=== PATIENT | male | born 1945 | race Caucasian/White ===

== ENCOUNTER 2020-07-05 11:30 | Outpatient (RCR) | payer MEDICARE, OTHER, SELFPAY | END 2020-07-06 23:55 | disposition home or self-care (01) | LOC: HO.PAOS 11:30 | PROVIDERS: Visit Provider Psychologist | DX: F40.10 Social phobia, unspecified (principal); Z86.59 Personal history of other mental and behavioral disorders | CPT/HCPCS: 90834 ==

== ENCOUNTER 2020-08-04 14:00 | Outpatient (RCR) | payer MEDICARE, OTHER, SELFPAY ==
--- NOTE | 2020-05-29 10:13 | HO.OPPROGNO ---
Subjective Subjective Date of Service: 05/29/20 Reason For Visit: depression Interim History: Keegan reports he has chosen to quarantine given the increase of COVID cases. He has delivery of groceries and neighbors help him with mail, trash as he is a fall risk. He continues to await senior housing (first floor) but is not aware of his position on the list. Does plan to vote tomorrow although experiencing some difficulty with his car battery and license renewal as they ask for a new copy of his certificate. Reports increase in sleep with good quality and increased energy after sleep, but with quarantine I am vegetating . Discussion of resilience strategies to assist. 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 CBD effective, however, if I use to much, my throat becomes sore. Discussion of possibility of adding some home services for assist during this time. Pt declines currently Medication Compliance: Yes Side effects from medications: No Attending Groups: No (NA) Review of Systems Constitutional: Reports body ache(s) (arthritis), Reports daytime sleepiness, Reports frequent falls (none recently), Reports malaise, Reports stops breathing during sleep (homero) and Reports weight gain Musculoskeletal: Reports abnormal gait, Reports myalgias, Reports arthralgias (bilateral knee) and Reports stiffness Reports abnormal gait Psychiatric: Reports abnormal sleep pattern, Reports depression and Reports anhedonia Mental Status Exam Mental Status Exam Patient Appearance: Well Grooomed and Appropriate Patient Orientation: Person, Place, Time and Situation Level of Consciousness: Awake and Alert Patient Behavior: Appropriate Mood Description: Appropriate and Flat Affect Description: Flat Patient Cognition Impaired: No Ability to Follow Directions: Excellent Speech Pattern: Clear, Spontaneous Speech and Soft-Spoken Memory Description: Intact Hallucinations: None Delusions: Not Present Thought Process: Intact Thought Content: positive for Intact Depressive Symptoms: Muscle Pain and Sleeping More Than Usual Judgement: Good Discharge Plan Discharge Attending provider: Naomi Paez Additional Instructions: Also uses Kratom 2 tsp a.m. CBD Oil Tumeric Occuvite Medications: No Action celecoxib 200 mg capsule 200 mg PO DAILY RF: 0 pantoprazole 40 mg tablet,delayed release (DR/EC) 40 mg PO QAM RF: 0 lisinopril 30 mg tablet 30 mg PO DAILY RF: 0 furosemide 20 mg tablet 20 mg PO DAILY RF: 0 bupropion HCl 300 mg tablet extended release 24 hr 300 mg PO QAM RF: 0 duloxetine 20 mg capsule,delayed release(DR/EC) 40 mg PO DAILY RF: 0 Colace 250 mg 250 mg PO DAILY RF: 0 Fish Oil RF: 0 M.V.I. Adult RF: 0 Vitamin D3 2,000 mcg 2,000 mcg DAILY RF: 0 cranberry RF: 0 Assessment & Plan Patient educated on: medication risk/benefits, therapeutic strategies and medical condition Informed Consent: understands and further education needed Reason for contiued therapy Substantial Risk for: inability to function Greater than 50% of the session was spent on counseling and/or coordination of care
== END 2020-09-24 23:55 | disposition home or self-care (01) ==
LOC: HO.PAOS 14:00
PROVIDERS: Visit Provider Clinical Nurse Specialist Psychiatric/Mental Health, Adult
DX: F32.9 Major depressive disorder, single episode, unspecified (principal)
CPT/HCPCS: 99214

== ENCOUNTER 2022-01-31 09:05 | Outpatient (REF) | payer MEDICARE, OTHER, SELFPAY ==
[2022-01-31 09:30] LABS: MANUAL DIFF FLAG NO
[2022-01-31 10:28] LABS: Basophils Percent Auto 0.2 % (0-2); Eosinophils Absolute Auto 0.1 X10*3/uL (0.0-0.4); Eosinophils Percent Auto 1.4 % (0-4); Hematocrit 47.8 % (42.0-52.0); Hemoglobin 15.4 g/dl (14.0-18.0); Imm Gran Abs Auto 0.02 X10*3/uL (0.00-0.03); Imm Gran Pct Auto 0.2 % (0.0-0.4); Lymphocytes Absolute Auto 1.6 X10*3/uL (1.2-4.9); Mean Corpuscular HGB Conc 32.2 g/dl (31.0-36.0); Mean Corpuscular Hemoglobin 30.2 pg (27.0-33.0); Mean Corpuscular Volume 93.7 fL (80.0-98.0); Mean Platelet Volume 11.2 fL (9.4-12.4); Monocytes Absolute Auto 0.8 X10*3/uL (0.1-1.2); Monocytes Percent Auto 9.2 % (2-11); Neutrophils Absolute Auto 5.6 x10*3/uL (2.0-8.3); Platelet Count 255 X10*3/uL (160-400); Red Cell Distribution Width 14.7 % (11.0-16.0); White Blood Count 8.1 X10*3/uL (4.8-10.8)
[2022-01-31 10:43] LABS: Appearance Urine HAZY; Color Urine YELLOW; Glucose Urine UA NEG (NEG); Leukocyte Esterase Urine 1+ (NEG); Nitrite Urine POS (NEG); Specific Gravity - Urine >= 1.030 (1.005-1.025); UACC Culture Trigger YES; Urine Blood NEG (NEG); Urine Ketones NEG (NEG); Urine Protein TRACE MG/DL (NEG-TRACE)
[2022-01-31 10:44] LABS: Estimated Average Glucose 97 mg/dL
[2022-01-31 11:04] LABS: Alanine Aminotransferase 21 U/L (0-40); Alkaline Phosphatase 68 U/L (39-117); Anion Gap 15 (12-20); Aspartate Amino Transferase 22 U/L (5-37); Bilirubin Total 0.8 mg/dL (0.0-1.0); Blood Urea Nitrogen 18 mg/dL (9-16); Calcium 8.9 mg/dL (8.4-10.2); Carbon Dioxide 26 mmol/L (22-29); Chloride 106 mmol/L (96-108); Cholesterol 133 mg/dL; Estimated Glomerular Filt Rate > 60; Glucose Random 102 mg/dL (60-115); HDL Cholesterol 78 mg/dL; LDL Cholesterol Calculated 44 mg/dl; Magnesium 1.9 mg/dL (1.6-2.6); Potassium 4.5 mmol/L (3.3-5.1); Sodium 142 mmol/L (135-145); Total Protein 6.8 g/dL (6.5-8.0); Triglycerides 57 mg/dL
[2022-01-31 11:09] LABS: UACC CULT YES
[2022-01-31 11:10] LABS: Bacteria Urine 1+ /LPF; Mucus Urine 1+ /LPF; RBC Urine 0-2 /HPF (0); Squamous Epithelial Cell Urine 1+ /LPF
[2022-01-31 11:28] LABS: Free T4 (Free Thyroxine) 0.89 ng/dL (0.71-1.85); Thyroid Stimulating Hormone 4.57 uIU/mL (0.32-4.0); Vitamin D 25-OH Total 34.5 ng/mL (>30)
== END 2022-01-31 09:06 | disposition home or self-care (01) ==
LOC: HO.LAB 09:05
PROVIDERS: PCP Internal Medicine; Visit Provider Internal Medicine
DX: I10 Essential (primary) hypertension (principal); E78.00 Pure hypercholesterolemia, unspecified; E03.9 Hypothyroidism, unspecified; R73.01 Impaired fasting glucose
CPT/HCPCS: 36415; 80053; 80061; 81001; 82306; 83036; 83735; 84439; 84443; 85025; 87086